=== PATIENT | male | born 1950 | race Caucasian/White ===

== ENCOUNTER 2017-11-21 13:57 | Emergency (ER) | payer MEDICARE ==
[2017-11-21 14:23] VITALS: BP 120/72
[2017-11-21] MEDS ORDERED: AMOX/CLAV 875 MG/125 MG TABLET PO STA (15:00)
--- NOTE | 2017-11-21 15:03 | ED Physician Documentation ---
PD HPI UPPER EXT INJURY - Stated complaint Stated Complaint: Infected toe - Chief complaint Chief Complaint: Wound - History obtained from History obtained from: Patient - History of Present Illness Location: Other (He has a small area of redness and swelling over the top of the right third toe that he noticed yesterday. No recollected injury. He has diabetes but does not have neuropathy) Review of Systems Constitutional: denies: Fever, Chills Cardiac: reports: Reviewed and negative Respiratory: reports: Reviewed and negative PD PAST MEDICAL HISTORY - Present Medications Home Medications: Ambulatory Orders Medication Instructions Recorded Confirmed Amox/Clav 875/125 [Augmentin] 1 each PO Q12H #20 tablet 11/21/17 Lisinopril 10 mg 11/21/17 - Allergies Allergies/Adverse Reactions: Allergies Allergy/AdvReac Type Severity Reaction Status Date / Time No Known Drug Allergies Allergy Verified 11/21/17 14:23 PD ED PE NORMAL - Vitals Vital signs reviewed: Yes - General General: Alert and oriented X 3, No acute distress - Extremities Extremities: Other (Over the top of the right third toe there is a dime sized red area with a little point on it and I was able to debride it and expressed pus which was extended with sent for culture. There is no limited range of motion or cellulitis of the foot itself.) - Neuro Neuro: Alert and oriented X 3, Normal speech Results - Vitals Vitals: Vital Signs - 24 hr 11/21/17 14:19 Temperature 36.2 C L Heart Rate 77 Respiratory 18 Rate Blood Pressure 120/72 O2 Saturation 98 Oxygen O2 Source Room air - Labs Labs: Microbiology 11/21/17 15:00 Wound Culture - Preliminary Toe - Right Third PD MEDICAL DECISION MAKING - ED course ED course: He has a toe infection, he is diabetic, does not look very bad right now. We will trial outpatient treatment with Augmentin, culture was sent. He was counseled on signs and symptoms to return for. - Sepsis Event Vital Signs: Vital Signs - 24 hr 11/21/17 14:19 Temperature 36.2 C L Heart Rate 77 Respiratory 18 Rate Blood Pressure 120/72 O2 Saturation 98 Oxygen O2 Source Room air Departure - Departure Disposition: 01 Home, Self Care Clinical Impression: Toe abrasion, infected Qualifiers: Encounter type: initial encounter Laterality: right Qualified Code(s): S90.414A - Abrasion, right lesser toe(s), initial encounter Condition: Good Record reviewed to determine appropriate education?: Yes Instructions: Diabetic Foot Ulcer Dc, ED Foot Care Diabetic Follow-Up: [facility] [Provider Group] [facility] [Provider Group] [facility] [Provider Group] Prescriptions: Amox/Clav 875/125 [Augmentin] 1 each PO Q12H #20 tablet Comments: We are performing a wound culture, the results should be done in 48-72 hours. If antibiotic change is necessary we will call you. Return if worse in the meantime, especially if you develop increased pain, fevers, cannot keep down the medication. Otherwise follow-up with your physician in approximately 2-3 days. Discharge Date/Time: 11/21/17 15:44
== END 2017-11-21 15:44 | disposition home or self-care (01) ==
LOC: ED 13:57
DX: S90.414A Abrasion, right lesser toe(s), initial encounter (principal); E11.9 Type 2 diabetes mellitus without complications
CPT/HCPCS: 87070; 87181; 87205; 99281; 99283; A9270

== ENCOUNTER 2021-12-15 15:56 | Emergency (ER) | payer MEDICARE, OTHER ==
[2021-12-15 17:06] LABS: BASOPHILS % (AUTO) 0.3 %; EOSINOPHILS # (AUTO) 0.1 10^3/uL (0.0-0.7); EOSINOPHILS % (AUTO) 0.7 %; HCT - HEMATOCRIT 39.1 % (42.0-52.0); HGB - HEMOGLOBIN 13.4 g/dL (14.0-18.0); LYMPHOCYTES # (AUTO) 1.6 10^3/uL (1.5-3.5); LYMPHOCYTES % (AUTO) 16.5 %; MEAN CORPUSCULAR HEMOGLOBIN 29.7 pg (27.0-31.0); MEAN CORPUSCULAR HGB CONC 34.3 g/dL (32.0-36.0); MEAN CORPUSCULAR VOLUME 86.7 fL (80.0-94.0); MEAN PLATELET VOLUME 9.3 fL (7.4-11.4); MONOCYTES # (AUTO) 0.9 10^3/uL (0.0-1.0); MONOCYTES % (AUTO) 9.2 %; NEUTROPHILS % (AUTO) 72.8 %; PLT - PLATELET COUNT 214 10^3/uL (130-450); RED BLOOD COUNT 4.51 10^6/uL (4.70-6.10); RED CELL DISTRIBUTION WIDTH 12.7 % (12.0-15.0); WHITE BLOOD COUNT 9.6 x10^3/uL (4.8-10.8)
[2021-12-15] MEDS ORDERED: SODIUM CHLORIDE 0.9% 1,000 ML IV STA ×2 (17:11→17:39)
--- NOTE | 2021-12-15 17:13 | ED Physician Documentation ---
History of Present Illness - Stated complaint Stated Complaint: EAR PROBLEM - Chief complaint Chief Complaint: General - Additonal information Additional information: 70-year-old male comes to the emergency department for evaluation of 3 near syncopal episodes over the last 3 weeks. Patient reports that when he goes from a sitting position to standing he feels like he is going to pass out. He however has not had any loss of consciousness. He denies any chest pain, shortness of air loss of vision during these episodes. He is a diabetic on insulin. Also has a history of previous CVA. He takes Plavix daily history of hypertension on lisinopril. 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 He subsequently developed a cellulitis and took a course of cephalexin. He has not taken antibiotics now for about 2 weeks. He continues to report left ear pain with some swelling and clear drainage. No fevers. [facility] He lives independently. Review of Systems Constitutional: denies: Fever, Chills Eyes: reports: Reviewed and negative Ears: reports: Other (Skin excision) Throat: reports: Reviewed and negative Cardiac: reports: Reviewed and negative Respiratory: reports: Reviewed and negative GI: reports: Reviewed and negative : reports: Reviewed and negative Musculoskeletal: reports: Reviewed and negative Neurologic: reports: Near syncope. denies: Syncope, Seizure, Confused, Altered mental status, Headache, Head injury, LOC Psychiatric: reports: Reviewed and negative PD PAST MEDICAL HISTORY - Past Medical History Endocrine/Autoimmune: Type 2 diabetes - Present Medications Home Medications: Ambulatory Orders Medication Instructions Recorded Confirmed Amox/Clav 875/125 [Augmentin] 1 each PO Q12H #20 tablet 11/21/17 lisinopriL [Lisinopril] 10 mg 11/21/17 Doxycycline Hyclate 100 mg PO BID #14 cap 12/15/21 - Allergies Allergies/Adverse Reactions: Allergies Allergy/AdvReac Type Severity Reaction Status Date / Time No Known Drug Allergies Allergy Verified 11/21/17 14:23 - Social History Does the pt smoke?: Yes Smoking Status: Former smoker PD ED PE NORMAL - General General: Alert and oriented X 3, No acute distress, Well developed/nourished - HEENT HEENT: Atraumatic, Moist mucous membranes, Other (Well approximated skin incision on the top of the left ear. The ear itself has mildly erythematous and indurated cartilage. Small amount of serous drainage. Mildly tender to touch.) - Neck Neck: Supple, no meningeal sign, No adenopathy - Cardiac Cardiac: RRR. No: No murmur - Respiratory Respiratory: No respiratory distress, Clear bilaterally. 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 Eye Opening: Spontaneous Motor: Obeys Commands Verbal: Oriented GCS Score: 15 - Psych Psych: Normal mood Results - Vitals Vitals: Vital Signs - 24 hr 12/15/21 12/15/21 12/15/21 16:05 16:13 17:13 Temperature 36.3 C L 36.3 C L Heart Rate 83 75 75 Heart Rate [ Sitting] Heart Rate [ Standing] Heart Rate [ Supine] Respiratory 16 28 H 21 Rate Blood Pressure 75/47 L 98/87 H 111/63 Blood Pressure [Sitting] Blood Pressure [Standing] Blood Pressure [Supine] O2 Saturation 94 97 95 12/15/21 12/15/21 12/15/21 17:31 18:00 18:02 Temperature Heart Rate 75 Heart Rate [ 82 74 Sitting] Heart Rate [ 90 78 Standing] Heart Rate [ 76 69 Supine] Respiratory 16 Rate Blood Pressure 111/63 Blood Pressure 92/67 112/71 [Sitting] Blood Pressure 74/51 L 74/53 L [Standing] Blood Pressure 118/73 126/67 [Supine] O2 Saturation 95 12/15/21 18:30 Temperature Heart Rate 70 Heart Rate [ Sitting] Heart Rate [ Standing] Heart Rate [ Supine] Respiratory 21 Rate Blood Pressure 136/66 H Blood Pressure [Sitting] Blood Pressure [Standing] Blood Pressure [Supine] O2 Saturation 98 Oxygen O2 Source Room air - EKG (time done) 1759 Rate: Rate (enter#) (73) Rhythm: NSR [place]: Other Intervals: Normal PA. No: Prolonged QT QRS: Normal Ischemia: Q waves (inferior leads) Compare to prior EKG: Old EKG unavailable Computer interpretation: Agree with computer - Labs Labs: Laboratory Tests 12/15/21 12/15/21 12/15/21 16:25 16:25 16:25 WBC 9.6 RBC 4.51 L Hgb 13.4 L Hct 39.1 L MCV 86.7 MCH 29.7 MCHC 34.3 RDW 12.7 Plt Count 214 MPV 9.3 Neut # (Auto) 7.0 H Lymph # (Auto) 1.6 [place] # (Auto) 0.9 Eos # (Auto) 0.1 Baso # (Auto) 0.0 Absolute Nucleated RBC 0.00 Nucleated RBC % 0.0 Sodium 130 L Potassium 4.2 Chloride 93 L Carbon Dioxide 22 Anion Gap 15.0 H BUN 40 H Creatinine 1.6 H Estimated GFR (MDRD) 43 L Glucose 178 H Calcium 8.8 Total Bilirubin 1.0 AST 22 ALT 18 Alkaline Phosphatase 63 Troponin I High Sens 5.4 Total Protein 8.1 Albumin 3.5 Globulin 4.6 H Albumin/Globulin Ratio 0.8 L Lipase 39 12/15/21 19:38 WBC RBC Hgb Hct MCV MCH MCHC RDW Plt Count MPV Neut # (Auto) Lymph # (Auto) [place] # (Auto) Eos # (Auto) Baso # (Auto) Absolute Nucleated RBC Nucleated RBC % Sodium 132 L Potassium 4.3 Chloride 98 L Carbon Dioxide 24 Anion Gap 10.0 BUN 38 H Creatinine 1.6 H Estimated GFR (MDRD) 43 L Glucose 143 H Calcium 7.9 L Total Bilirubin AST ALT Alkaline Phosphatase Troponin I High Sens Total Protein Albumin Globulin Albumin/Globulin Ratio Lipase PD MEDICAL DECISION MAKING - ED course Complexity details: reviewed results, re-evaluated patient, d/w patient ED course: 70-year-old male presents emergency department for evaluation of multiple near syncope episodes over the last few weeks. This follows a recent office procedure for excision of a skin cancer on his left ear for which he received Keflex antibiotics after he developed cellulitis. Here in the emergency department he is alert well-appearing and without any feelings of lightheaded while at rest. However we did document fairly significant orthostatic hypotension from laying to a sudden standing position which patient correlates with his lightheadedness. His screening blood count shows no significant anemia. His electrolytes do show a mild hyponatremia at 130. He endorses that he has been drinking a lot of water. However he is acutely appears mildly dehydrated with an elevated BUN and creatinine. Prescription of doxycycline is being prescribed for the cellulitis of the ear. Given his laboratory findings and orthostasis on exam he was repleted with 2 L of crystalloid. On reexam he felt better with ambulation and no longer felt lightheaded however his blood pressures remained orthostatic. I did offer the patient evaluation for the observation but he declined and wishes to be discharged home. He is advised to withhold his lisinopril for 1 week. He is to follow-up with his primary care doctor this week to have both his labs rechecked as well as his blood pressure/orthostatics. The usual and emergent r eturn precautions were discussed for concerns of fainting/syncope and chest pain. Departure - Departure Disposition: Home, Self Care Clinical Impression: Cellulitis of left ear, Orthostatic hypotension, Dehydration, Elevated BUN, Elevated serum creatinine Condition: Stable Record reviewed to determine appropriate education?: Yes Instructions: ED Hypotension Orthostatic Prescriptions: Doxycycline Hyclate 100 mg PO BID #14 cap Comments: Fernando you are seen today for multiple episodes of near fainting. On exam we found that when you went from a laying position to a standing position your blood pressure dropped from a normal pressure to a low pressure. This is called orthostasis. Please hold your blood pressure medication/lisinopril for the next week. We did give you 2 L of IV fluids today in the ER. It is important that you follow-up with your primary care doctor to have your labs rechecked to this week. Your BUN and creatinine were slightly elevated and I would like to make sure that they have normalized. You may be very dizzy when changing position so go very slowly. If you have any fainting episodes or chest pain please return immediately to the ER. I am prescribing some doxycycline an antibiotic to be used for treatment of your ear infection. Please avoid exposure to the sun while taking this as it can cause a rash with sun exposure
[2021-12-15 17:33] LABS: ALBUMIN 3.5 g/dL (3.2-5.5); ALBUMIN/GLOBULIN RATIO 0.8 (1.0-2.2); CALCIUM 8.8 mg/dL (8.5-10.3); CREATININE 1.6 mg/dL (0.6-1.2); POTASSIUM 4.2 mmol/L (3.5-5.0); TOTAL PROTEIN 8.1 g/dL (6.7-8.2)
--- NOTE | 2021-12-15 17:43 | XRAY Report ---
PROCEDURE: Chest 1 View X-Ray INDICATIONS: Chest Pain TECHNIQUE: One view of the chest was acquired. COMPARISON: None FINDINGS: Surgical changes and devices: None. Lungs and pleura: No pleural effusions or pneumothorax. Lungs are clear. Mediastinum: Mediastinal contours appear normal. Heart size is normal. Bones and chest wall: No suspicious bony lesions. Overlying soft tissues appear unremarkable. IMPRESSION: Chest without acute cardiopulmonary abnormalities or focal airspace disease. Reviewed by: Oscar Everett MD on 12/15/2021 5:42 PM PDT Approved by: Oscar Everett MD on 12/15/2021 5:42 PM PDT Station ID: [id number]
[2021-12-15 19:53] LABS: CALCIUM 7.9 mg/dL (8.5-10.3); CREATININE 1.6 mg/dL (0.6-1.2); POTASSIUM 4.3 mmol/L (3.5-5.0)
[2021-12-15 21:41] VITALS: BP 116/73
== END 2021-12-15 21:30 | disposition home or self-care (01) ==
LOC: ED 15:56
DX: I95.1 Orthostatic hypotension (principal); I10 Essential (primary) hypertension; E86.0 Dehydration; H60.12 Cellulitis of left external ear; R79.89 Other specified abnormal findings of blood chemistry; Z87.891 Personal history of nicotine dependence
CPT/HCPCS: 36415; 80048; 80053; 83690; 84484; 85025; 93005; 96360; 96361; 99284

== ENCOUNTER 2022-10-29 13:27 | Emergency (ER) | payer OTHER ==
[2022-10-29] MEDS ORDERED: SODIUM CHLORIDE 0.9% 1,000 ML IV STA (13:43)
--- NOTE | 2022-10-29 13:44 | ED Physician Documentation ---
History of Present Illness - Stated complaint Stated Complaint: HYPOTENSION - Chief complaint Chief Complaint: General - History obtained from History obtained from: Patient - Additonal information Additional information: 71-year-old gentleman with history of type 2 diabetes and Parkinson's presents with low blood pressures weakness and dizziness. States he was seen at [facility] for [facility] blood pressure. He is already off of any antihypertensives. They prescribed an abdominal binder for his low blood pressure. He continues to have symptoms. He denies chest pain, trouble breathing, abdominal pain, changes in bowel movements. PD PAST MEDICAL HISTORY - Past Medical History Endocrine/Autoimmune: Type 2 diabetes - Present Medications Home Medications: Ambulatory Orders Medication Instructions Recorded Confirmed Amox/Clav 875/125 [Augmentin] 1 each PO Q12H #20 tablet 11/21/17 lisinopriL [Lisinopril] 10 mg 11/21/17 Doxycycline Hyclate 100 mg PO BID #14 cap 12/15/21 Midodrine [ProAmatine] 2.5 mg PO TID #90 tablet 10/29/22 - Allergies Allergies/Adverse Reactions: Allergies Allergy/AdvReac Type Severity Reaction Status Date / Time No Known Drug Allergies Allergy Verified 10/29/22 13:34 - Social History Does the pt smoke?: Yes Smoking Status: Former smoker PD ED PE NORMAL - Vitals Vital signs reviewed: Yes - General General: Alert and oriented X 3, No acute distress - HEENT HEENT: PERRL, EOMI - Neck Neck: Supple, no meningeal sign, No bony TTP - Cardiac Cardiac: RRR, No murmur - Respiratory Respiratory: No respiratory distress, Clear bilaterally - Abdomen Abdomen: Soft, Non tender - Back Back: No CVA TTP, No spinal TTP - Derm Derm: Normal color, Warm and dry - Extremities Extremities: No edema, No calf tenderness / cord - Neuro Neuro: Alert and oriented X 3, Normal speech Results - Vitals Vitals: Vital Signs - 24 hr 10/29/22 10/29/22 10/29/22 13:29 14:07 14:31 Temperature 36.5 C 36.8 C Heart Rate 87 71 68 Heart Rate [ 72 Sitting] Heart Rate [ 86 Supine] Respiratory 16 20 15 Rate Blood Pressure 87/60 L 81/61 L 108/70 Blood Pressure 111/84 H [Sitting] Blood Pressure 133/88 H [Supine] O2 Saturation 95 93 95 10/29/22 15:07 Temperature Heart Rate 72 Heart Rate [ 72 Sitting] Heart Rate [ 70 Supine] Respiratory 18 Rate Blood Pressure 111/72 Blood Pressure 111/72 [Sitting] Blood Pressure 137/81 H [Supine] O2 Saturation 96 Oxygen O2 Source Room air - EKG (time done) 1415 EKG releavant findings:: EKG personally interpreted by author of this note. Relevant findings are: Rate: Rate (enter#) (65) Rhythm: NSR [place]: Normal Intervals: Normal [place] Ischemia: Q waves (leads III and F as well as V1 through V3). No: ST elevation c/w ischemia, ST depression Compare to prior EKG: Unchanged from prior EKG (No significant change from prior EKG dated 12/15/2001) Computer interpretation: Agree with computer - Labs Labs: Laboratory Tests 10/29/22 10/29/22 10/29/22 13:41 13:49 13:49 WBC 5.1 RBC 5.39 Hgb 15.2 Hct 44.6 MCV 82.7 MCH 28.2 MCHC 34.1 RDW 14.2 Plt Count 140 MPV 10.1 Neut # (Auto) 2.6 Lymph # (Auto) 2.0 [place] # (Auto) 0.5 Eos # (Auto) 0.1 Baso # (Auto) 0.0 Absolute Nucleated RBC 0.00 Nucleated RBC % 0.0 Sodium 136 Potassium 4.5 Chloride 102 Carbon Dioxide 23 Anion Gap 11.0 BUN 26 H Creatinine 1.6 H Estimated GFR (MDRD) 43 L Glucose 283 H POC Whole Bld Glucose 298 H Lactic Acid Calcium 9.5 Total Bilirubin 0.8 AST 30 ALT 25 Alkaline Phosphatase 66 Total Protein 8.2 Albumin 3.7 Globulin 4.5 H Albumin/Globulin Ratio 0.8 L 10/29/22 13:54 WBC RBC Hgb Hct MCV MCH MCHC RDW Plt Count MPV Neut # (Auto) Lymph # (Auto) [place] # (Auto) Eos # (Auto) Baso # (Auto) Absolute Nucleated RBC Nucleated RBC % Sodium Potassium Chloride Carbon Dioxide Anion Gap BUN Creatinine Estimated GFR (MDRD) Glucose POC Whole Bld Glucose Lactic Acid 1.7 Calcium Total Bilirubin AST ALT Alkaline Phosphatase Total Protein Albumin Globulin Albumin/Globulin Ratio PD Medical Decision Making - ED course ED course: 71-year-old gentleman with orthostatic hypotension. CBC is normal. CMP notable for chronic renal insufficiency with elevated blood sugar. He was counseled on increasing fluid intake and salt. He did not have much of an improvement on orthostatics after the administration of IV fluids so we will start midodrine. Departure - Departure Disposition: 01 Home, Self Care Clinical Impression: Orthostatic hypotension Condition: Good Record reviewed to determine appropriate education?: Yes Instructions: ED Hypotension Orthostatic Prescriptions: Midodrine [ProAmatine] 2.5 mg PO TID #90 tablet Comments: You were seen today for orthostatic hypotension. Nothing real concerning on labs, chronic renal insufficiency and moderate elevation in blood glucose. I am prescribing a medication to help with your low blood pressure. I sent the medication to the [facility] in [place]. Drink plenty fluids and also okay to eat as much salt as you want. If your blood pressure is not coming up after a few days you can double the dose to 2 tablets 3 times a day. Do not take it within about 3 to 4 hours of bedtime no as we do not want your blood pressure too high when you are sleeping at night. Call your doctor to arrange a follow-up appointment, make the next available appointment. In the interim, return anytime if worse or if new symptoms develop.
[2022-10-29 14:01] LABS: BASOPHILS % (AUTO) 0.2 %; EOSINOPHILS # (AUTO) 0.1 10^3/uL (0.0-0.7); EOSINOPHILS % (AUTO) 2.3 %; HCT - HEMATOCRIT 44.6 % (42.0-52.0); HGB - HEMOGLOBIN 15.2 g/dL (14.0-18.0); LYMPHOCYTES % (AUTO) 38.4 %; MEAN CORPUSCULAR HEMOGLOBIN 28.2 pg (27.0-31.0); MEAN CORPUSCULAR HGB CONC 34.1 g/dL (32.0-36.0); MEAN CORPUSCULAR VOLUME 82.7 fL (80.0-94.0); MEAN PLATELET VOLUME 10.1 fL (7.4-11.4); MONOCYTES # (AUTO) 0.5 10^3/uL (0.0-1.0); MONOCYTES % (AUTO) 8.8 %; NEUTROPHILS # (AUTO) 2.6 10^3/uL (1.5-6.6); NEUTROPHILS % (AUTO) 50.1 %; PLT - PLATELET COUNT 140 10^3/uL (130-450); RED BLOOD COUNT 5.39 10^6/uL (4.70-6.10); RED CELL DISTRIBUTION WIDTH 14.2 % (12.0-15.0); WHITE BLOOD COUNT 5.1 x10^3/uL (4.8-10.8)
[2022-10-29 14:11] LABS: ALBUMIN 3.7 g/dL (3.2-5.5); ALBUMIN/GLOBULIN RATIO 0.8 (1.0-2.2); BILIRUBIN,TOTAL 0.8 mg/dL (0.2-1.0); CALCIUM 9.5 mg/dL (8.5-10.3); CREATININE 1.6 mg/dL (0.6-1.2); POTASSIUM 4.5 mmol/L (3.5-5.0); TOTAL PROTEIN 8.2 g/dL (6.7-8.2)
[2022-10-29] MEDS ORDERED: MIDODRINE 2.5 MG TABLET PO STA (15:12)
[2022-10-29 16:24] VITALS: BP 127/85
== END 2022-10-29 16:25 | disposition home or self-care (01) ==
LOC: ED 13:27
DX: I95.1 Orthostatic hypotension (principal); E11.9 Type 2 diabetes mellitus without complications; G20 Parkinson's disease; Z79.899 Other long term (current) drug therapy; Z87.891 Personal history of nicotine dependence
CPT/HCPCS: 36415; 80053; 83605; 85025; 93005; 99284; A9270

== ENCOUNTER 2023-01-02 08:00 | Outpatient (CLI) | payer OTHER ==
--- NOTE | 2023-01-03 16:12 | XRAY Report ---
PROCEDURE: Hand 3 View RT INDICATIONS: RIGHT HAND PAIN TECHNIQUE: 3 views of the hand(s) acquired. COMPARISON: None. FINDINGS: Bones: No fractures or dislocations. No suspicious bony lesions. Soft tissues: No suspicious soft tissue calcifications or masses. 2 mm radiopaque foreign body pro jects over the second middle phalanx. IMPRESSION: No acute bony abnormality. 2 mm radiopaque foreign body projects over the second middle phalanx. Reviewed by: Chris Estrada on 01/03/2023 4:11 PM PDT Approved by: Chris Estrada on 01/03/2023 4:11 PM PDT Station ID: [id number]
== END 2023-01-02 23:59 | disposition home or self-care (01) ==
LOC: DI.S 08:00
PROVIDERS: ATTEND Nurse Practitioner
DX: M79.641 Pain in right hand (principal); M79.5 Residual foreign body in soft tissue